=== PATIENT | female | born 1940 | race Caucasian/White ===

== ENCOUNTER → 2017-09-01 17:28 | Outpatient (CLI) | payer MEDICARE, OTHER, SELFPAY ==
--- NOTE | 2017-09-01 17:31 | DI.MRI.S_ITS ---
PROCEDURE: MR LUMBAR SPINE WO CON INDICATIONS: L5/S1 spondylolithesis, Spinal Stenosis. Low back pain TECHNIQUE: Noncontrast sagittal T1 spin echo and T2 fast echo, sagittal STIR, axial T1 and T2 fast spin echo through the lumbar spine. In cases with scoliosis, additional coronal T2 fast spin echo may be performed. COMPARISON: [facility], CR, SPINE LUMB 2 OR 3VW, 04/16/2015, 14:01. [facility], CR, SPINE LUMB MIN 4VW, 09/26/2013, 14:20. [facility], MR, L-SPINE WITHOUT CONTRAST, 10/04/2013, 13:00. FINDINGS: Image quality: Excellent. Alignment and Curvature: Suspect transitional anatomy with prominent S1-S2 disc. There is grade 1 anterolisthesis at L5-S1. Bone Marrow: Marrow is of normal overall signal. No acute vertebral body compression fractures. Spinal Cord: Conus medullaris terminates at the L2 level. Visualized cord demonstrates normal signal and size. Paraspinous Soft Tissues: No paravertebral masses. L1-L2: Normal appearance. L2-L3: Normal appearance. L3-L4: Normal appearance. L4-L5: Mild loss of disc height and disc desiccation. There is prompt posterior disc bulge. Mild to moderate bilateral facet arthropathy and hypertrophy of ligament flavum. No central canal stenosis. Mild bilateral foraminal stenosis, unchanged. L5-S1: Mild to moderate loss of disc height and disc desiccation. There is prompt posterior disc bulge. Moderate to severe bilateral facet. No central canal stenosis. Mild bilateral foramina stenosis, unchanged. There is a large collar of cyst in the sacrum at level of S2-S3 measuring 1.7 x 2.5 cm, unchanged from the last exam. IMPRESSION: 1. Multilevel degenerative disc disease and facet arthropathy as described. 2. No central canal stenosis. 3. Mild bilateral foraminal stenosis at L4-L5 and L5-S1. 4. Suspect transitional anatomy. Please confirm vertebral levels on radiographs prior to interventional/surgical procedures. 5. 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 Dictated by: Americo Mcfarlane M.D. on 09/02/2017 at 14:02 Approved by: Americo Mcfarlane M.D. on 09/03/2017 at 10:33
== END ==
PROVIDERS: PCP Family Medicine; Visit Provider Physical Medicine & Rehabilitation
DX: M47.816 Spondylosis without myelopathy or radiculopathy, lumbar region (principal); M51.36 Other intervertebral disc degeneration, lumbar region; M99.73 Connective tissue and disc stenosis of intervertebral foramina of lumbar region
CPT/HCPCS: 72148

== ENCOUNTER 2017-09-22 13:52 | Outpatient (CLI) | payer MEDICARE, OTHER, SELFPAY ==
--- NOTE | 2017-09-22 13:56 | DI.RAD.S_ITS ---
PROCEDURE: PAIN L/SI FACET INJ/BLK 1STL INDICATIONS: SPONDYLOSIS FINDINGS: Fluoroscopic spot filming was performed to verify placement of spinal needles at the left L4-5 and left L5-S1 facet level(s), as labeled on the films. Appropriate location(s) of the needle tip(s) was confirmed by injection of iodinated contrast. IMPRESSION: Successful left L4-5 and left L5-S1 facet localization. Dictated by: Syed Leslie M.D. on 09/22/2017 at 16:28 Approved by: Syed Leslie M.D. on 09/22/2017 at 16:33
--- NOTE | 2017-09-22 13:56 | DI.RAD.S_ITS ---
PROCEDURE: XR SHOULDER LT MIN 2V INDICATIONS: shoulder impingement TECHNIQUE: 3 views of the shoulder were acquired. COMPARISON: None. FINDINGS: Bones: No fractures or dislocations. No suspicious bony lesions. Visualized ribs appear intact. 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 Soft tissues: No suspicious soft tissue calcifications. 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 No definite osseous impingement on to the normal course of the rotator cuff. Dictated by: Syed Leslie M.D. on 09/22/2017 at 14:55 Approved by: Syed Leslie M.D. on 09/22/2017 at 14:55
--- NOTE | 2017-09-22 13:56 | DI.RAD.S_ITS ---
PROCEDURE: XR LUMBAR SPINE 6V W BENDING INDICATIONS: L5/S1 slip with stenosis TECHNIQUE: 5 views of the lumbar spine acquired. COMPARISON: [facility], MR, L-SPINE WITHOUT CONTRAST, 10/04/2013, 13:00. [facility], MR, MR LUMBAR SPINE WO CON, 09/01/2017, 17:54. FINDINGS: Bones: 5 nonrib-bearing vertebrae are present. There is abnormal bony alignment with mild anterolisthesis of L4 on L5 and slight anterolisthesis of L5 on S1. No vertebral body compression fractures. No suspicious bony lesions. Soft tissues: Overlying bowel gas pattern is normal. No suspicious soft tissue calcifications. Flexion/extension: There is normal range of motion, with preserved normal alignment. IMPRESSION: Mild grade 1 anterolisthesis of L4 on L5 and of L5 on S1, associated with degenerative disc disease and facet osteoarthritis. Pars interarticularis defects are not identified. Dictated by: Syed Leslie M.D. on 09/22/2017 at 14:56 Approved by: Syed Leslie M.D. on 09/22/2017 at 15:08
[2017-09-22 15:19] VITALS: BP 152/78; PULSE 56; RESP 14; TEMP 36.4; O2SAT 96
[2017-09-22 15:54] VITALS: BP 163/76; PULSE 64; RESP 16; O2SAT 98
[2017-09-22 15:58] VITALS: BP 163/76; PULSE 63; RESP 12; O2SAT 97
--- NOTE | 2017-09-22 16:03 | P.PCN_ITS ---
Procedures Date/Time Date of procedure: 09/22/17 Time of procedure: 14:52 General Procedure description: PREOP DIAGNOSIS 1. FACET ARTHROPATHY, 2. AXIAL LBP, 3. MULTILEVEL DDD, POST OP DIAGNOSIS 1. FACET ARTHROPATHY, 2. AXIAL LBP, 3. MULTILEVEL DDD, PROCEDURES 1. FLUORSCOPICALLY GUIDED CONTRAST CONTROLLED FACET JOINT INJECTIONS LEFT L4/5 , L5/S1 SURGEON: DO RASHMI Henry is referred by Dr. Gambino for treatment of Axial LBP FINDINGS Multilevel Facet Arthropathy with Clinically significant axial LBP DESCRIPTION OF PROCEDURE Fluoroscopically guided, contrast-controlled left L4/5, L5/S1 facet joint injections. Following denial of allergy and review of potential side effects and complications, including, but not necessarily limited to, infection, allergic reaction, local tissue breakdown, stroke, temporary or permanent nerve injury, paralysis, and possible , the patient indicated that the patient understood and agreed to proceed. An informed consent document was signed by the patient, witnessed by a nurse, and placed in the patient's chart. Additionally, other treatment options including medications, modalities, and physical therapy were reviewed with the patient. In the prone position, following sterile prep and drape of the lumbar region, the posterior aspect of the left L4/5, L5/S1 facet joints were identified fluoroscopically. The skin was anesthetized via a 25-gauge 1.5-inch needle with 1% lidocaine solution into the corresponding facet joints. At this point, a 22-gauge 3.5-inch spinal needle was atraumatically introduced and advanced under fluoroscopic guidance into the corresponding facet joints. Following negative aspiration, injections of approximately 0.2-cc of Isovue 200 confirmed interarticular placement without vascular uptake. Radiological data, including multiple fluoroscopic views of the lumbosacral spine, reveal a spinal needle at the left L4/5, L5/S1 facet joints. Subsequent views show flow of contrast material both superiorly and inferiorly within the joint space without vascular or intrathecal uptake. At this point, a total of 0.5 cc including a mixture of 0.25cc Marcaine and 0.25cc betamethasone was injected without complication into each of the corresponding facet joints. The patient was then transferred to the recovery area where they were observed for an appropriate period of time after the injection. The patient reported a VAS score of 7 prior to the procedure and a post-procedure VAS of 0. Total Fluoroscopy Time: 12.7 seconds Total Conscious Sedation Time: 24min POST OP INSTRUCTIONS The patient was provided a Pain Log to continue to record their response to the target-specific procedure prior to follow-up visit with their referring physician. Additionally, specific post-injection care instructions and a contact number to our office were provided if concerns arise regarding possible complications associated with the procedure are suspected. Carlos Uriostegui, Complications: none
[2017-09-22 16:08] VITALS: BP 175/76; PULSE 78; RESP 16; O2SAT 100
[2017-09-22] MEDS: IOPAMIDOL 15 ML VIAL 3 ML INJ (16:15)
[2017-09-22] MEDS: BETAMETHASONE 30 MG/5 ML MDV 6 MG INJ (16:15)
[2017-09-22] MEDS: BUPIVACAINE 0.5% (PF) 30 ML VIAL INJ (16:15)
== END 2017-09-22 17:17 | disposition home or self-care (01) ==
PROVIDERS: PCP Family Medicine; Visit Provider Physical Medicine & Rehabilitation
DX: M47.26 Other spondylosis with radiculopathy, lumbar region (principal); M43.17 Spondylolisthesis, lumbosacral region; M75.40 Impingement syndrome of unspecified shoulder; M19.012 Primary osteoarthritis, left shoulder
CPT/HCPCS: 64493; 72114; 73030; 99152; J0702

== ENCOUNTER 2017-11-04 09:58 | Outpatient (CLI) | payer MEDICARE, OTHER, SELFPAY ==
[2017-11-04] VITALS (8 sets, daily range): BP systolic 98–163; BP diastolic 39–91; PULSE 60–69; RESP 15–16; TEMP 36.5; O2SAT 96–100
--- NOTE | 2017-11-04 | DI.RAD.S_ITS ---
PROCEDURE: XR KNEE RT 3V INDICATIONS: knee djd TECHNIQUE: 3 views of the knee were acquired. COMPARISON: None. FINDINGS: Bones: No fractures or dislocations. No suspicious bony lesions. Mild joint space narrowing and minimal marginal spurring all 3 compartments. Soft tissues: Small joint effusion. No suspicious soft tissue calcifications. IMPRESSION: 1. Small joint effusion. No acute osseous abnormality. 2. Mild tricompartmental joint degeneration Dictated by: Barry Ron M.D. on 11/04/2017 at 16:27 Approved by: Barry Ron M.D. on 11/04/2017 at 16:29
--- NOTE | 2017-11-04 10:05 | DI.RAD.S_ITS ---
PROCEDURE: PAIN L INTERLAMINAR/CAUDAL INJ INDICATIONS: L5 - S1 EPIDURAL FINDINGS: Fluoroscopic spot filming was performed to verify placement of spinal needles at the L5-S1 level(s), as labeled on the films. Appropriate location(s) of the needle tip(s) was confirmed by injection of iodinated contrast. IMPRESSION: Intraoperative imaging for injection at the L5-S1 level Dictated by: Barry Ron M.D. on 11/04/2017 at 16:49 Approved by: Barry Ron M.D. on 11/04/2017 at 16:49
[2017-11-04] MEDS: MIDAZOLAM 5 MG/5 ML VIAL IV (13:41)
[2017-11-04] MEDS: DEXAMETHASONE 10 MG/ML VIAL 20 MG INJ (13:48)
[2017-11-04] MEDS: IOPAMIDOL 15 ML VIAL 3 ML INJ (13:48)
[2017-11-04] MEDS: BUPIVACAINE 0.25% (PF) VIAL 2 ML INJ (13:48)
[2017-11-04] MEDS: methylPREDNISolone acetate 80 MG/ML VIAL INJ (13:48)
--- NOTE | 2017-11-04 14:05 | P.PCN_ITS ---
Procedures Date/Time Date of procedure: 11/04/17 Time of procedure: 14:02 General Procedure description: PROVIDER: Carlos Uriostegui DO Operative Note PREOP DIAGNOSIS 1. HNP WITH RADICULAR FEATURES, 2. MULTILEVEL CENTRAL STENOSIS, POST OP DIAGNOSIS 1. HNP WITH RADICULAR FEATURES, 2. MULTILEVEL CENTRAL STENOSIS, PROCEDURES 1. FLUORSCOPICALLY GUIDED CONTRAST CONTROLLED INTERLAMINAR EPIDURAL STEROID INJECTION - L5/S1 PHYSICIAN: Carlos Uriostegui DO INDICATIONS Kenia is referred by Dr. Gambino for treatment of Bilateral Foraminal Stenosis L >R LE symptoms. FINDINGS Multilevel Central Spinal Stenosis with Nerve Root Compression DESCRIPTION OF PROCEDURE Fluoroscopically guided, contrast-controlled L5/S1 translaminar epidural steroid injection. Following denial of allergy and review of potential side effects and complications, including, but not necessarily limited to, infection, allergic reaction, local tissue breakdown, temporary as well as permanent nerve injury, paralysis, stroke and possible , the patient indicated that the patient understood and agreed to proceed. An informed consent document was signed by the patient, witnessed by a nurse, and placed in the patient's chart. Additionally, other treatment options including modalities, medications, and physical therapy were reviewed with the patient. After review of previous anaesthesic history and IV conscious sedation the patient was deemed safe to proceed with todays procedure with IV conscious sedation as ASA class II designation. Safety time-out was performed to confirm patient ID, procedure to be performed and site of procedure. IV sedation was accomplished with a combination of 3mg of Versed administered by the RN after DO order, titrated to patient comfort during the course of the procedure while the patient remained responsive to all verbal commands. In the prone position, following sterile prep and drape of the lumbar region, the L5/S1 translaminar space was identified fluoroscopically. The skin was anesthetized via a 25-gauge, 1.5-inch needle with 1% lidocaine solution. At this point, a 22-gauge short bevel spinal needle was atraumatically introduced and advanced under fluoroscopic guidance into the region of the L5/S1 translaminar space. Depth was confirmed on lateral view. Radiological data, including multiple fluoroscopic views of the lumbar spine, reveal a spinal needle at the L5/S1 translaminar space. Lateral views then show placement of the needle in the epidural space. Subsequent views show contrast material flowing superiorly and inferiorly in the epidural space. No vascular or intrathecal uptake is observed. At this point, using loss of resistance technique with saline and air, the epidural space was entered. This was confirmed following negative aspiration with injection of approximately 1.5 cc of Isovue 200, showing excellent epidural flow without vascular or intrathecal uptake. At this point, 1 cc of 1 % lidocaine solution combined with 3 cc or 20 mg of dexamethasone and 80mg Depo medrol was injected without incident. The patent tolerated the procedure without signs of symptoms of complications prior to transfer to the recovery area for further monitoring. The patient was then transferred to the recovery area where they were observed for an appropriate period of time after the injection. The patient reported a VAS score of 6 prior to the procedure and a post-procedure VAS of 0. Total Fluoroscopy Time: 11.8 seconds Total Conscious Sedation Time: 24min POST OP INSTRUCTIONS The patient was provided a Pain Log to continue to record their response to the target-specific procedure prior to follow-up visit with their referring physician. Additionally, specific post-injection care instructions and a contact number to our office were provided if concerns arise regarding possible complications associated with the procedure are suspected. Carlos Uriostegui DO
== END 2017-11-04 15:15 | disposition home or self-care (01) ==
PROVIDERS: PCP Family Medicine; Visit Provider Physical Medicine & Rehabilitation
DX: M51.16 Intervertebral disc disorders with radiculopathy, lumbar region (principal); M48.061 Spinal stenosis, lumbar region without neurogenic claudication; M17.11 Unilateral primary osteoarthritis, right knee; M25.461 Effusion, right knee
CPT/HCPCS: 62323; 73562; J1040; J1100; J2250

== ENCOUNTER 2018-02-24 08:35 | Outpatient (CLI) | payer MEDICARE, OTHER, SELFPAY ==
--- NOTE | 2018-02-24 08:37 | DI.RAD.S_ITS ---
PROCEDURE: PAIN L INTERLAMINAR/CAUDAL INJ INDICATIONS: SPINAL STENOSIS FINDINGS: Fluoroscopic spot filming was performed to verify placement of spinal needles at the L5-S1 level(s), as labeled on the films. Appropriate location(s) of the needle tip(s) was confirmed by injection of iodinated contrast. Dictated by: Khanh Nur M.D. on 02/24/2018 at 14:56 Approved by: Khanh Nur M.D. on 02/24/2018 at 14:57
[2018-02-24 08:43] VITALS: BP 170/81; PULSE 65; RESP 16; TEMP 36.1; O2SAT 98
[2018-02-24 09:19] VITALS: BP 173/93; PULSE 73; RESP 16; O2SAT 96
[2018-02-24] MEDS: MIDAZOLAM 5 MG/5 ML VIAL IV (09:20)
[2018-02-24 09:23] VITALS: BP 154/90; PULSE 73; RESP 16; O2SAT 95
[2018-02-24] MEDS: DEXAMETHASONE 10 MG/ML VIAL 20 MG INJ (09:24)
[2018-02-24] MEDS: BUPIVACAINE 0.25% (PF) VIAL 2 ML INJ (09:24)
[2018-02-24] MEDS: methylPREDNISolone acetate 80 MG/ML VIAL INJ (09:24)
[2018-02-24] MEDS: IOPAMIDOL 15 ML VIAL 3 ML INJ (09:24)
[2018-02-24 09:26] VITALS: BP 146/85; PULSE 66; RESP 18; O2SAT 95
--- NOTE | 2018-02-24 09:31 | PC.NURSE ---
assisting pt off proc table and transporting to post proc area in stable condition
--- NOTE | 2018-02-24 09:33 | P.PCN_ITS ---
Procedures Date/Time Date of procedure: 02/24/18 Time of procedure: 09:31 General Procedure description: PROVIDER: Carlos Uriostegui DO Operative Note PREOP DIAGNOSIS 1. HNP WITH RADICULAR FEATURES, 2. MULTILEVEL CENTRAL STENOSIS, POST OP DIAGNOSIS 1. HNP WITH RADICULAR FEATURES, 2. MULTILEVEL CENTRAL STENOSIS, PROCEDURES 1. FLUORSCOPICALLY GUIDED CONTRAST CONTROLLED INTERLAMINAR EPIDURAL STEROID INJECTION - Para Left L5/S1 PHYSICIAN: Carlos Uriostegui DO INDICATIONS Kenia is referred by Dr. Gambino for treatment of Bilateral Foraminal Stenosis L >R LE symptoms. FINDINGS Multilevel Central Spinal Stenosis with Nerve Root Compression DESCRIPTION OF PROCEDURE Fluoroscopically guided, contrast-controlled L5/S1 translaminar epidural steroid injection. Following denial of allergy and review of potential side effects and complications, including, but not necessarily limited to, infection, allergic reaction, local tissue breakdown, temporary as well as permanent nerve injury, paralysis, stroke and possible , the patient indicated that the patient understood and agreed to proceed. An informed consent document was signed by the patient, witnessed by a nurse, and placed in the patient's chart. Additionally, other treatment options including modalities, medications, and physical therapy were reviewed with the patient. After review of previous anaesthesic history and IV conscious sedation the patient was deemed safe to proceed with todays procedure with IV conscious sedation as ASA class II designation. Safety time-out was performed to confirm patient ID, procedure to be performed and site of procedure. IV sedation was accomplished with a combination of 3mg of Versed administered by the RN after DO order, titrated to patient comfort during the course of the procedure while the patient remained responsive to all verbal commands. In the prone position, following sterile prep and drape of the lumbar region, the L5/S1 translaminar space was identified fluoroscopically. The skin was anesthetized via a 25-gauge, 1.5-inch needle with 1% lidocaine solution. At this point, a 22-gauge short bevel spinal needle was atraumatically introduced and advanced under fluoroscopic guidance into the region of the L5/S1 translaminar space. Depth was confirmed on lateral view. Radiological data, including multiple fluoroscopic views of the lumbar spine, reveal a spinal needle at the L5/S1 translaminar space. Lateral views then show placement of the needle in the epidural space. Subsequent views show contrast material flowing superiorly and inferiorly in the epidural space. No vascular or intrathecal uptake is observed. At this point, using loss of resistance technique with saline and air, the epidural space was entered. This was confirmed following negative aspiration with injection of approximately 1.5 cc of Isovue 200, showing excellent epidural flow without vascular or intrathecal uptake. At this point, 1 cc of 1 % lidocaine solution combined with 3 cc or 20 mg of dexamethasone and 80mg Depo medrol was injected without incident. The patent tolerated the procedure without signs of symptoms of complications prior to transfer to the recovery area for further monitoring. The patient was then transferred to the recovery area where they were observed for an appropriate period of time after the injection. The patient reported a VAS score of 6 prior to the procedure and a post-procedure VAS of 0. Total Fluoroscopy Time: 11.8 seconds Total Conscious Sedation Time: 24min POST OP INSTRUCTIONS The patient was provided a Pain Log to continue to record their response to the target-specific procedure prior to follow-up visit with their referring physician. Additionally, specific post-injection care instructions and a contact number to our office were provided if concerns arise regarding possible complications associated with the procedure are suspected. Carlos Uriostegui DO Complications: none
[2018-02-24 09:40] VITALS: BP 144/64; PULSE 68; RESP 18; O2SAT 98
[2018-02-24 09:49] VITALS: BP 139/69; PULSE 61; RESP 18; O2SAT 98
== END 2018-02-24 09:59 | disposition home or self-care (01) ==
LOC: RAD 08:37
PROVIDERS: PCP Family Medicine; Visit Provider Physical Medicine & Rehabilitation
DX: M51.17 Intervertebral disc disorders with radiculopathy, lumbosacral region (principal); M48.062 Spinal stenosis, lumbar region with neurogenic claudication; M48.07 Spinal stenosis, lumbosacral region; M43.17 Spondylolisthesis, lumbosacral region
CPT/HCPCS: 62323; 99152; J1040; J1100; J2250

== ENCOUNTER 2018-06-01 11:32 | Outpatient (CLI) | payer MEDICARE, OTHER, SELFPAY ==
[2018-06-01] VITALS (13 sets, daily range): BP systolic 116–152; BP diastolic 62–89; PULSE 55–65; RESP 16–18; TEMP 36.2; O2SAT 96–100
--- NOTE | 2018-06-01 11:34 | DI.RAD.S_ITS ---
PROCEDURE: PAIN L/S MED/LAT N RFA BILAT INDICATIONS: SPONDYLOSIS FINDINGS: Fluoroscopic spot filming was performed to verify placement of spinal needles at the L4, L5, S1 level(s), as labeled on the films. Appropriate location(s) of the needle tip(s) was confirmed by injection of iodinated contrast. Dictated by: Khanh Nur M.D. on 06/01/2018 at 15:19 Approved by: Khanh Nur M.D. on 06/01/2018 at 15:19
[2018-06-01] MEDS: MIDAZOLAM 5 MG/5 ML VIAL IV (13:20)
[2018-06-01] MEDS: fentaNYL 100 MCG/2 ML INJ 50 MCG IV (13:30)
[2018-06-01] MEDS: LIDOCAINE 1% 20 ML INJ 10 ML INJ (13:54)
[2018-06-01] MEDS: BETAMETHASONE 30 MG/5 ML MDV 12 MG INJ (13:55)
[2018-06-01] MEDS: BUPIVACAINE 0.5% (PF) VIAL 5 ML INJ (13:57)
--- NOTE | 2018-06-01 14:15 | PC.NURSE ---
pt tolerated procedure, able to get off table with 2 person assist, able to stand with support on each side. Transferred via wheelchair to pre procedure room for continued monitoring with Viviana ISAAC.
--- NOTE | 2018-06-01 14:20 | P.PCN_ITS ---
Procedures Date/Time Date of procedure: 06/01/18 Time of procedure: 14:19 General Procedure description: PREOP DIAGNOSIS 1. RECALCITRANT FACET ARTHROPATHY, POST OP DIAGNOSIS 1. RECALCITRANT FACET ARTHROPATHY PROCEDURES 1. BILATERAL L4 AND L5 MEDIAL BRANCH RADIOFREQUENCY NEUROTOMY AND S1 DORSAL RAMUS BRANCH RADIOFREQUENCY NEUROTOMY, PHYSICIAN: Carlos Uriostegui DO INDICATIONS: Kenia is referred by Dr. Gambino for treatment of facet arthropathy. DESCRIPTION OF PROCEDURE Bilateral L4 and L5 medial branch radiofrequency neurotomy and S1 dorsal ramus radiofrequency neurotomy under fluoroscopy with conscious sedation. The patient is well known to this clinic having undergone previous facet injections with good but temporary relief. The patient has experienced appropriate, concordant relief with previous facet and median branch blocks but the patient's pain has been recalcitrant to further conservative measures. Therefore, based upon the patient's relief and persistent symptoms, the patient is considered an appropriate candidate for facet rhizotomy. All of the patient's questions regarding the risks versus benefits of the procedure, including, but not limited to, bleeding, infection, temporary as well as lasting nerve injury, paralysis, stroke, and , as well treatment alternatives were answered to satisfaction. After obtaining informed consent, denial of pertinent drug allergies, as well as being made aware of the potential risks of bleeding, infection, spinal cord trauma, paralysis, temporary and permanent nerve damage, seizure, stroke, and possible , the patient was brought to the fluoroscopy suite and positioned prone on the fluoroscopy table. The lumbar region was prepped with Betadine and covered with a fenestrated drape in the usual sterile fashion. Appropriate monitors applied including pulse oximeter, pulse, and blood pressure for regular monitoring throughout the procedure. After review of previous anaesthesic history and IV conscious sedation the patient was deemed safe to proceed with todays procedure with IV conscious sedation as ASA class II designation. Safety time-out was performed to confirm patient ID, procedure to be performed and site of procedure. IV sedation was accomplished with a combination of 5mg of Versed and 50mcg of Fentanyl administered by the RN after DO order, titrated to patient comfort during the course of the procedure while the patient remained responsive to all verbal commands. After local infiltration using 1% lidocaine, under fluoroscopic guidance, a 10- cm RF insulated needle with a 10-mm active tip was positioned parallel to the junction of the right sacral ala and the superior articulating process where the S1 dorsal ramus resides. Needle placement was confirmed with sensory stimulation at 50 Hz, with motor stimulation of .5v on the right which produced local stimulation without radicular component. The stimulation was then increased to 1.5v with, once again, only local multifidus stimulation without radicular component. This was then followed by two discreet lesions performed at 80 degrees Celsius for 90 seconds each. The needle was then removed and the identical procedure was performed along the length of the right L5 medial branch with motor stimulation at .7v on the right. The identical procedure was once again performed along the length of the right L4 medial branch with motor stimulation of .5v on the right. The identical procedure was repeated on the left. The patient tolerated the procedure well without signs or symptoms of complications prior to transfer to the recovery area continued monitoring without incident. The patient was then transferred to the recovery area where they were observed for an appropriate period of time after the injection. The patient reported a VAS score of 9 prior to the procedure and a post-procedure VAS of 0. Total Fluoroscopy Time: 22.7 seconds Total Conscious Sedation Time: 34min POST OP INSTRUCTIONS The patient was provided a Pain Log to continue to record the patient's response to the target-specific procedure prior to the patient's follow-up visit with the referring physician. Additionally, specific post-injection care instructions and a contact number to our office were provided if concerns arise regarding possible complications associated with the procedure are suspected. Carlos Uriostegui DO Complications: none
--- NOTE | 2018-06-02 16:12 | PC.NURSE ---
FOLLOW UP CALL MADE, PT C/O INCREASED LOWER BACK PAIN, REMINDED HER THAT THAT IS VERY COMMON ON THE DAY AFTER A PROCEDURE AND ENCOURAGED HER TO CONTINUE HER PAIN LOG AND CALL CLINIC # IF IT DOES NOT START TO TREND BETTER IN THE NEXT 10 DAYS. PT VERBALIZED UNDERSTANDING OF INSTRUCTIONS AND DENIED OTHER QUESTIONS/CONCERNS.
== END 2018-06-01 14:37 | disposition home or self-care (01) ==
LOC: RAD 11:33
PROVIDERS: PCP Family Medicine; Visit Provider Physical Medicine & Rehabilitation
DX: M47.817 Spondylosis without myelopathy or radiculopathy, lumbosacral region (principal); M43.17 Spondylolisthesis, lumbosacral region
CPT/HCPCS: 64635; 64636; 99152; 99153; J0702; J2250; J3010

== ENCOUNTER 2018-07-27 13:49 | Outpatient (CLI) | payer MEDICARE, OTHER, SELFPAY ==
[2018-07-27] VITALS (8 sets, daily range): BP systolic 120–168; BP diastolic 49–93; PULSE 49–62; RESP 16–18; TEMP 35.9; O2SAT 95–100
--- NOTE | 2018-07-27 13:53 | DI.RAD.S_ITS ---
PROCEDURE: PAIN SI JOINT INJECTION ELLA COMPARISON: None. INDICATIONS: SPONDYLOSIS FINDINGS: Right and left sacroiliac joint injection from posterior approach is noted, with needle tips in normal position for lower third sacroiliac joint access. IMPRESSION: Successful dorsal approach to each sacroiliac joint at the inferior third for sacroiliac joint steroid injection bilaterally. Dictated by: Syed Leslie M.D. on 07/27/2018 at 15:41 Approved by: Syed Leslie M.D. on 07/27/2018 at 15:42
[2018-07-27] MEDS: fentaNYL 100 MCG/2 ML INJ 50 MCG IV (14:35)
[2018-07-27] MEDS: MIDAZOLAM 5 MG/5 ML VIAL IV (14:35)
[2018-07-27] MEDS: BETAMETHASONE 30 MG/5 ML MDV 12 MG INJ (14:37)
[2018-07-27] MEDS: BUPIVACAINE 0.5% (PF) VIAL 2 ML INJ (14:38)
[2018-07-27] MEDS: IOPAMIDOL 15 ML VIAL 3 ML INJ (14:40)
--- NOTE | 2018-07-27 14:47 | PC.NURSE ---
pt tolerated procedure well. Able to get patient off the table with standby assist. Transferred pt via wheelchair to pre procedure room for continued monitoring with Viviana ISAAC.
--- NOTE | 2018-07-27 14:57 | P.PCN_ITS ---
Procedures Date/Time Date of procedure: 07/27/18 Time of procedure: 14:55 General Procedure description: PREOP Dx: Sacroiliac joint pain/DJD POST OP DX: Sacroiliac Joint Pain/DJD Procedures: Fluoroscopic guided contrast controlled bilateral sacroiliac joint injections Physician: Carlos Uriostegui D.O. Indications: Kenia is referred by Dr. Gambino for treatment of left sacroiliac joint DJD Description of procedure Fluoroscopic guided, contrast controlled left sacroiliac joint injection Following denial of allergies and review of potential side effects and complications, including, but not necessarily limited to, infection, allergic reaction, local tissue breakdown, temporary as well as permanent nerve injury, paralysis, stroke and possible , the patient indicated that they understood and agreed to proceed. An informed consent was signed by the patient, witnessed by a nurse, and placed in the patient's chart. Additionally, other treatment options including modalities, medications, and physical therapy were reviewed w ith the patient. After review of previous anaesthesic history and IV conscious sedation the patient was deemed safe to proceed with todays procedure with IV conscious sedation as ASA class II designation. Safety time-out was performed to confirm patient ID, procedure to be performed and site of procedure. IV sedation was accomplished with a combination of 3mg of Versed and 50mcg of Fentanyl admin istered by the RN after DO order, titrated to patient comfort during the course of the procedure while the patient remained responsive to all verbal commands. In the prone position following sterile prep and drape of the pelvic region, the hyper lucency on in the inferior aspect of the left sacroiliac joint was identified fluoroscopically the skin was anesthetized be a 25 gauge 1 eventual with approximately 2 cc of 1% lidocaine solution. At this point, a 22 gauge 3 in spinal needle was atraumatically introduced and advanced under fluoroscopic guidance into the inferior aspect of the left sacroiliac joint. Following negative aspiration, approximately 0.3 cc of Isovue-300 was injected confirming intra-articular placement without vascular uptake. Radiographic data, including multiple fluoroscopic views of the pelvis, reveals a spinal needle in the left sacroiliac joint hyper lucent zone. Subsequent view show flow contrast tear superiorly and inferiorly within the joint capsule without vascular intrathecal uptake. At this point a total of 1 cc or 0 8 of 0.5% Marcaine was combined with 1 cc of 6 mg of betamethasone was injected without incident. The patient tolerated the procedure well without signs or symptoms of complications prior to transfer to the recovery area for further monitoring. The patient was then transferred to the recovery area with a bur observed for an appropriate time after the injection. The patient reverted a vas score of 7 prior to the procedure and postprocedure vas of 1. Total fluoroscopy time: 22.7 sec Total conscious sedation time: 24 min Postop instructions The patient was provided with a pain like to continue to record the patient's response to the target specific procedure prior to the patient's follow-up visit with the referring physician. Additionally, specific post injection care instructions and a contact number to our office were provided if concerns arise regarding the possible complications associated with procedure are suspected. Carlos Uriostegui D.O. Complications: none
--- NOTE | 2018-07-28 12:11 | PC.NURSE ---
Follow up Call made and pt reports I am wonderful!! No pain and no meds. She asked what her blood pressures were in the procedure so I looked those up for her. She is going to see DR. Guerra her primary care doctor this week. Otherwise she is very happy with the results.
== END 2018-07-27 15:28 | disposition home or self-care (01) ==
LOC: RAD 13:51
PROVIDERS: PCP Family Medicine; Visit Provider Physical Medicine & Rehabilitation
DX: M53.3 Sacrococcygeal disorders, not elsewhere classified (principal); G89.29 Other chronic pain; M47.819 Spondylosis without myelopathy or radiculopathy, site unspecified
CPT/HCPCS: 27096; 99152; J0702; J2250; J3010

== ENCOUNTER → 2020-04-21 13:04 | Outpatient (CLI) | payer MEDICARE, OTHER, SELFPAY ==
--- NOTE | 2020-04-21 13:06 | DI.RAD.S_ITS ---
PROCEDURE: XR LUMBAR SPINE MIN 4V INDICATIONS: acute lbp TECHNIQUE: 5 views of the lumbar spine were acquired. COMPARISON: [facility], MR, MR LUMBAR SPINE WO CON, 04/21/2020, 13:21. [facility], CR, XR LUMBAR SPINE 6V W BENDING, 09/22/2017, 13:38. FINDINGS: Bones: 5 nonrib-bearing vertebrae are present. Exaggerated lumbar spine lordosis. Mild anterolisthesis of L5 on S1. L4-L5 and L5-S1 facet joint hypertrophy. No vertebral body compression fractures. No suspicious bony lesions. Subtle lucency in the S2 vertebral body, unchanged. Soft tissues: Overlying bowel gas pattern is normal. No suspicious soft tissue calcifications. Oblique images: No pars defects. IMPRESSION: No compression fracture. Mild anterolisthesis of L5 on S1. Mild degenerative change. Dictated by: Theo Cam M.D. on 04/21/2020 at 15:39 Approved by: Theo Cam M.D. on 04/21/2020 at 15:45
--- NOTE | 2020-04-21 13:06 | DI.MRI.S_ITS ---
PROCEDURE: MR LUMBAR SPINE WO CON INDICATIONS: acute LBP with spasms TECHNIQUE: Noncontrast sagittal T1 spin echo and T2 fast echo, sagittal STIR, axial T1 and T2 fast spin echo through the lumbar spine. In cases with scoliosis, additional coronal T2 fast spin echo may be performed. COMPARISON: [facility], CR, XR LUMBAR SPINE MIN 4V, 04/21/2020, 13:40. [facility], MR, L-SPINE WITHOUT CONTRAST, 10/04/2013, 13:00. [facility], CR, XR LUMBAR SPINE 6V W BENDING, 09/22/2017, 13:38. [facility], MR, MR LUMBAR SPINE WO CON, 09/01/2017, 17:54. FINDINGS: Image quality: Excellent. Alignment and Curvature: There is grade 1 anterolisthesis of L5 on S1, trace anterolisthesis of L4 on L5 and trace retrolisthesis of L1 on L2, L2 on L3, unchanged. Transitional anatomy is noted. Vertebral bodies are labeled 1 through 5 in keeping with prior nomenclature. Bone Marrow: Marrow is of normal overall signal. No acute vertebral body compression fractures. Spinal Cord: Conus medullaris terminates at the L2 level. Visualized cord demonstrates normal signal and size. 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 Paraspinous Soft Tissues: No paravertebral masses. Discs: Moderate to severe desiccation is present L5-S1, moderate throughout the remainder of the lumbar spine. L1-L2: No disc bulge, spinal stenosis or foraminal narrowing. Mild facet hypertrophy. No interval change. L2-L3: No disc bulge, spinal stenosis or foraminal narrowing. Mild ligamentum flavum and facet hypertrophy as well as epidural lipomatosis. No interval progression. L3-L4: Minimal disc bulge without spinal stenosis. Minimal right foraminal narrowing with facet and ligamentum flavum hypertrophy. Epidural lipomatosis is present. Minimal interval progression. L4-L5: Mild disc bulge without spinal stenosis. Minimal to mild bilateral foraminal narrowing. Facet and ligamentum flavum hypertrophy are present. L5-S1: Mild disc bulge without spinal stenosis. Moderate to severe left and minimal right foraminal narrowing, mildly progressive on the left. Facet hypertrophy is present. IMPRESSION: 1. Multilevel degenerative changes with small areas of interval progression as above. 2. Most prominent foraminal narrowing is noted on the left at L5-S1 secondary to anterolisthesis as well as facet hypertrophy. Dictated by: Cuca Potts M.D. on 04/23/2020 at 10:33 Approved by: Cuca Potts M.D. on 04/23/2020 at 10:41
== END ==
PROVIDERS: PCP Family Medicine; Referring Provider Physical Medicine & Rehabilitation; Visit Provider Physical Medicine & Rehabilitation
DX: M54.5 Low back pain (principal); M43.17 Spondylolisthesis, lumbosacral region; M47.817 Spondylosis without myelopathy or radiculopathy, lumbosacral region; M47.816 Spondylosis without myelopathy or radiculopathy, lumbar region; M48.07 Spinal stenosis, lumbosacral region
CPT/HCPCS: 72110; 72148

== ENCOUNTER 2020-06-21 11:16 | Outpatient (CLI) | payer MEDICARE, OTHER, SELFPAY ==
[2020-06-21] VITALS (8 sets, daily range): BP systolic 130–174; BP diastolic 59–74; PULSE 52–56; RESP 12–17; TEMP 36.8; O2SAT 94–98
--- NOTE | 2020-06-21 11:19 | DI.RAD.S_ITS ---
PROCEDURE: PAIN L/SI FACET INJ/BLK 1STL INDICATIONS: SPONDYLOSIS COMPARISON: [facility], , PAIN L/SI FACET INJ/BLK 1STL, 09/22/2017, 15:48. FINDINGS: Fluoroscopic spot filming was performed to verify placement of spinal needles at the left L4-5 and L5-S1 level(s), as labeled on the films. Appropriate location(s) of the needle tip(s) was confirmed by injection of iodinated contrast. IMPRESSION: Fluoroscopic guidance for left L4-5 and L5-S1 facet joint injection. Please see procedure note for further details. Dictated by: Shayan Barnes M.D. on 06/21/2020 at 14:52 Approved by: Shayan Barnes M.D. on 06/21/2020 at 14:53
[2020-06-21] MEDS: fentaNYL 100 MCG/2 ML INJ 50 MCG IV (13:13)
[2020-06-21] MEDS: MIDAZOLAM 5 MG/5 ML VIAL IV (13:13)
[2020-06-21] MEDS: BUPIVACAINE 0.5% (PF) VIAL 5 ML INJ (13:20)
[2020-06-21] MEDS: IOPAMIDOL 15 ML VIAL 3 ML INJ (13:20)
[2020-06-21] MEDS: BETAMETHASONE 30 MG/5 ML MDV 12 MG INJ (13:20)
== END 2020-06-21 13:50 | disposition home or self-care (01) ==
LOC: RAD 11:17
PROVIDERS: PCP Family Medicine; Referring Provider Physical Medicine & Rehabilitation; Visit Provider Physical Medicine & Rehabilitation
DX: M47.816 Spondylosis without myelopathy or radiculopathy, lumbar region (principal); M47.817 Spondylosis without myelopathy or radiculopathy, lumbosacral region; Z20.822 Contact with and (suspected) exposure to COVID-19
CPT/HCPCS: 64493; 64494; 87635; 99152; C9803; J0702; J2250; J3010

== ENCOUNTER → 2020-06-21 11:49 | Outpatient (CLI) | payer MEDICARE, OTHER, SELFPAY ==
[2020-06-21 12:46] LABS: COVID19 -Nasal RAPID Negative (Negative)
--- NOTE | 2020-06-21 13:27 | P.PCN_ITS ---
Date/Time/Diagnoses Date of procedure: 06/21/20 Time of procedure: 13:27 Pre-procedure diagnosis: Facet Arthropathy Post-procedure diagnosis: same Procedure Notes Procedure: Fluoroscopically guided contrast controlled left L4/5, L5/S1 facet joint injection. Indications: Kenia is referred by Dr. Gambino for treatment of left axial low back pain. Physician: Carlos Uriostegui Total Fluoroscopy time (seconds): 8 Total sedation minutes: 9 Complications: none Procedure in detail & Post-procedure care: FINDINGS Multilevel Facet Arthropathy with Clinically significant axial LBP DESCRIPTION OF PROCEDURE Fluoroscopically guided, contrast-controlled left L4/5, L5/S1 facet joint injections. Following review of allergy and review of potential side effects and complications, including, but not necessarily limited to, infection, allergic reaction, local tissue breakdown, stroke, temporary or permanent nerve injury, paralysis, and possible , the patient indicated that the patient understood and agreed to proceed. An informed consent document was signed by the patient, witnessed by a nurse, and placed in the patient's chart. Additionally, other treatment options including medications, modalities, and physical therapy were reviewed with the patient. After review of previous anaesthesic history and IV conscious sedation the patient was deemed safe to proceed with today?s procedure with IV conscious sedation as ASA class II designation. Safety time-out was performed to confirm patient ID, procedure to be performed and site of procedure. IV sedation was accomplished with a combination of 2mg of Versed and 50mcg of Fentanylwas administered by the RN after DO order, titrated to patient comfort during the course of the procedure while the patient remained responsive to all verbal commands. In the prone position, following sterile prep and drape of the lumbar region, the posterior aspect of the left L4/5, L5/S1 facet joints were identified fluoroscopically. The skin was anesthetized via a 25-gauge 1.5-inch needle with 1% lidocaine solution into the corresponding facet joints. At this point, a 22- gauge 3.5-inch spinal needle was atraumatically introduced and advanced under fluoroscopic guidance into the corresponding facet joints. Following negative aspiration, injections of approximately 0.2-cc of Isovue 200 confirmed interarticular placement without vascular uptake. Radiological data, including multiple fluoroscopic views of the lumbosacral spine, reveal a spinal needle at the left L4/5, L5/S1 facet joints. Subsequent views show flow of contrast material both superiorly and inferiorly within the joint space without vascular or intrathecal uptake. At this point, a total of 0.5 cc including a mixture of 0.25cc Marcaine and 0.25cc betamethasone was injected without complication into each of the corresponding facet joints. The procedure tolerated the procedure well without signs or symptoms of complications prior to transfer to the recovery area continued monitoring witho ut incident. The patient was then transferred to the recovery area where they were observed for an appropriate period of time after the injection. The patient reported a VAS score of 7 prior to the procedure and a post-procedure VAS of 0. POST OP INSTRUCTIONS The patient was provided a Pain Log to continue to record their response to the target-specific procedure prior to follow-up visit with their referring physician. Additionally, specific post-injection care instructions and a contact number to our office were provided if concerns arise regarding possible complications associated with the procedure are suspected.
== END ==
PROVIDERS: PCP Family Medicine; Visit Provider Physical Medicine & Rehabilitation
DX: Z20.822 Contact with and (suspected) exposure to COVID-19 (principal)
CPT/HCPCS: 87635

== ENCOUNTER → 2020-09-03 08:22 | Outpatient (CLI) | payer MEDICARE, OTHER, SELFPAY ==
[2020-09-03 15:13] LABS: COVID19 -Nasal RAPID Negative (Negative)
== END ==
PROVIDERS: PCP Family Medicine; Referring Provider Physical Medicine & Rehabilitation; Visit Provider Physical Medicine & Rehabilitation
DX: Z20.822 Contact with and (suspected) exposure to COVID-19 (principal)
CPT/HCPCS: 87635; C9803

== ENCOUNTER 2020-09-04 12:02 | Outpatient (CLI) | payer MEDICARE, OTHER, SELFPAY ==
[2020-09-04] VITALS (8 sets, daily range): BP systolic 122–163; BP diastolic 56–72; PULSE 55–61; RESP 12–18; TEMP 36.2; O2SAT 93–97
--- NOTE | 2020-09-04 12:05 | DI.RAD.S_ITS ---
PROCEDURE: PAIN L/SI FACET INJ/BLK 1STL INDICATIONS: SPONDYLOSIS COMPARISON: [facility], , PAIN L/SI FACET INJ/BLK 1STL, 06/21/2020, 13:15. FINDINGS: Fluoroscopic spot filming was performed to verify placement of spinal needles at the L4, L5, S1 level(s), as labeled on the films. Appropriate location(s) of the needle tip(s) was confirmed by injection of iodinated contrast. Dictated by: Khanh Nur M.D. on 09/04/2020 at 15:30 Approved by: Khanh Nur M.D. on 09/04/2020 at 15:31
[2020-09-04] MEDS: fentaNYL 100 MCG/2 ML INJ 50 MCG IV (13:34)
[2020-09-04] MEDS: MIDAZOLAM 5 MG/5 ML VIAL IV (13:34)
[2020-09-04] MEDS: IOPAMIDOL 15 ML VIAL 3 ML INJ (13:36)
[2020-09-04] MEDS: LIDOCAINE 1% 20 ML 10 ML INJ (13:39)
[2020-09-04] MEDS: BUPIVACAINE 0.5% (PF) VIAL 5 ML INJ (13:39)
--- NOTE | 2020-09-04 13:46 | PM.PROC.IR.1 ---
Date/Time/Diagnoses Date of procedure: 09/04/20 Time of procedure: 13:46 Pre-procedure diagnosis: 1. FACET ARTHROPATHY Post-procedure diagnosis: same Procedure Notes Procedure: 1. Left L4, L5 and S1 MB BLOCKS Indications: Kenia is referred by Dr. Gambino for treatment of Left Axial LBP. Physician: Carlos Uriostegui Total Fluoroscopy time (seconds): 8 Total sedation minutes: 8 Complications: none Procedure in detail & Post-procedure care: DESCRIPTION OF PROCEDURE Fluoroscopically guided, contrast-controlled left L4, L5 and S1 medial branch blocks with 0.5cc of 0.5% Marcaine. Following review of allergy and review of potential side effects and complications, including, but not necessarily limited to, infection, allergic reaction, local tissue breakdown, nerve injury, paralysis, stroke and possible , the patient indicated that the patient understood and agreed to proceed. An informed consent document was signed by the patient, witnessed by a nurse, and placed in the patient's chart. After review of previous anaesthesic history and IV conscious sedation the patient was deemed safe to proceed with today?s procedure with IV conscious sedation as ASA class II designation. Safety time-out was performed to confirm patient ID, procedure to be performed and site of procedure. IV sedation was accomplished with a combination of 3mg of Versed and 50mcg of Fentanyl was administered by the RN after DO order, titrated to patient comfort during the course of the procedure while the patient remained responsive to all verbal commands. In the prone position, following sterile prep and drape of the lumbar region, the left L4, L5 and S1 anatomical location of the medial branch of the dorsal ramus was identified fluoroscopically. Subsequently an anesthetic skin wheal using 1% lidocaine solution was initiated at each of the anatomical spots. Subsequently then a 22-gauge 3.5-inch spinal needle was atraumatically introduced and advanced under fluoroscopic guidance at each of the corresponding sites at the left L4, L5 and S1 MB. After negative aspiration, 0.2cc of Isovue 200 was injected, confirming placement without vascular or intrathecal uptake. Subsequently then 0.5cc of 0.5% Marcaine solution was injected at each of the corresponding sites at the left L4, L5 and S1 medial branch locations. The patient tolerated the procedure well without signs or symptoms of complications. The patient tolerated the procedure well without signs or symptoms of complications prior to transfer to the recovery area continued monitoring without incident. Post-procedure, the patient was monitored initiating provocative activities to measure the amount of relief from block of the facetogenic pain. The patient reported a VAS of 7 prior to the procedure and a post-procedure VAS of 1. It has been a pleasure to assist in the diagnostic and therapeutic care of your patient. POST OP INSTRUCTIONS The patient was provided with a Pain Log to complete over the next several hours and subsequent days prior to the patient's follow up with the ordering physician. If the patient has guest experience captain relief to the solution applied, then they may be a candidate for medial branch rhizotomy. The patient is aware, was provided, once again, with a Pain Log and will follow up with the referring physician for review and clinical correlation.
== END 2020-09-04 14:05 | disposition home or self-care (01) ==
LOC: RAD 12:04
PROVIDERS: PCP Family Medicine; Referring Provider Physical Medicine & Rehabilitation; Visit Provider Physical Medicine & Rehabilitation
DX: M47.816 Spondylosis without myelopathy or radiculopathy, lumbar region (principal); M47.817 Spondylosis without myelopathy or radiculopathy, lumbosacral region; M54.5 Low back pain
CPT/HCPCS: 64493; 64494; 64495; J2250; J3010

== ENCOUNTER → 2021-07-11 14:18 | Outpatient (CLI) | payer MEDICARE, OTHER, SELFPAY | PROVIDERS: PCP Family Medicine; Referring Provider Physical Medicine & Rehabilitation; Visit Provider Physical Medicine & Rehabilitation | DX: R20.2 Paresthesia of skin (principal) | CPT/HCPCS: 95885; 95886; 95912 ==

== ENCOUNTER → 2021-07-15 09:51 | Outpatient (CLI) | payer MEDICARE, OTHER, SELFPAY ==
[2021-07-15 12:24] LABS: COVID19 -Nasal RAPID Negative (Negative)
== END ==
PROVIDERS: PCP Family Medicine; Visit Provider Physical Medicine & Rehabilitation
DX: Z20.822 Contact with and (suspected) exposure to COVID-19 (principal)
CPT/HCPCS: 87635; C9803

== ENCOUNTER 2021-07-16 07:37 | Outpatient (CLI) | payer MEDICARE, OTHER, SELFPAY ==
[2021-07-16] VITALS (9 sets, daily range): BP systolic 143–197; BP diastolic 69–93; PULSE 57–65; RESP 16–22; TEMP 36.6; O2SAT 94–98
--- NOTE | 2021-07-16 07:40 | DI.RAD.S_ITS ---
PROCEDURE: PAIN L/S MED/LAT N RFA INDICATIONS: SPONDYLOSIS COMPARISON: [facility], XA, PAIN L/SI FACET INJ/BLK 1STL, 06/21/2020, 13:15. [facility], XA, PAIN L/SI FACET INJ/BLK 1STL, 09/04/2020, 13:37. FINDINGS: Fluoroscopic spot filming was performed to verify placement of spinal needles on the left at L4, L5, and S1, as labeled on the films. IMPRESSION: Intraprocedural examination within normal limits. Dictated by: Colt Watts M.D. on 07/16/2021 at 8:15 Approved by: Colt Watts M.D. on 07/16/2021 at 8:17
[2021-07-16] MEDS: MIDAZOLAM 2 MG/2 ML VIAL IV (08:35)
[2021-07-16] MEDS: fentaNYL 100 MCG/2 ML INJ (08:35)
[2021-07-16] MEDS: LIDOCAINE 1% 20 ML (08:39)
[2021-07-16] MEDS: BUPIVACAINE 0.5% (PF) VIAL 5 ML INJ (08:40)
--- NOTE | 2021-07-16 09:03 | P.PCN_ITS ---
Date/Time/Diagnoses Date of procedure: 07/16/21 Time of procedure: 09:03 Pre-procedure diagnosis: 1. RECALCITRANT FACET ARTHROPATHY Post-procedure diagnosis: same Procedure Notes Procedure: 1. LEFT L4 AND L5 MEDIAL BRANCH RADIOFREQUENCY NEUROTOMY AND LEFT S1 DORSAL RAMUS RADIOFREQUENCY NEUROTOMY, Indications: Kenia is referred by Dr. Gambino for treatment of facet arthropathy. Physician: Carlos Uriostegui Total Fluoroscopy time (seconds): 9 Total sedation minutes: 24 Complications: none Procedure in detail & Post-procedure care: DESCRIPTION OF PROCEDURE Left L4 and L5 medial branch radiofrequency neurotomy and left S1 dorsal ramus branch radiofrequency neurotomy under fluoroscopy with conscious sedation. The patient is well known to this clinic having undergone previous facet injections with good but temporary relief. The patient has experienced appropriate, concordant relief with previous facet and median branch blocks but the patient's pain has been recalcitrant to further conservative measures. Therefore, based upon the patient's relief and persistent symptoms, the patient is considered an appropriate candidate for facet rhizotomy. All of the patient's questions regarding the risks versus benefits of the procedure, including, but not limited to, bleeding, infection, temporary as well as lasting nerve injury, paralysis, stroke, and , as well treatment alternatives were answered to satisfaction. After obtaining informed consent, denial of pertinent drug allergies, as well as being made aware of the potential risks of bleeding, infection, spinal cord trauma, paralysis, temporary and permanent nerve damage, seizure, stroke, and possible , the patient was brought to the fluoroscopy suite and positioned prone on the fluoroscopy table. The lumbar region was prepped with Betadine and covered with a fenestrated drape in the usual sterile fashion. Appropriate monitors applied including pulse oximeter, pulse, and blood pressure for regular monitoring throughout the procedure. IV sedation was accomplished with a combination of 2mg of Versed and 50mcg of Fentanyl titrated to patient comfort during the course of the procedure while the patient remained responsive to all verbal commands. After local infiltration using 1% lidocaine, under fluoroscopic guidance, a 10- cm RF insulated needle with a 10-mm active tip was positioned parallel to the junction of the left sacral ala and the superior articulating process where the S1 dorsal ramus resides. Needle placement was confirmed with sensory stimulation at 50 Hz, with motor stimulation of .5v on the left which produced local stimulation without radicular component. The stimulation was then increased to 2v with, once again, only local multifidus stimulation without radicular component. This was then followed by two discreet lesions performed at 80 degrees Celsius for 90 seconds each. The needle was then removed and the identical procedure was performed along the length of the left L5 medial branch with motor stimulation at .7v on the left. The identical procedure was once again performed along the length of the left L4 medial branch with motor stimulation of .5v on the left. The patient tolerated the procedure well without signs or symptoms of complications prior to transfer to the recovery area continued monitoring without incident. The patient was then transferred to the recovery area where they were observed for an appropriate period of time after the injection. The patient was then transferred to the recovery area where they were observed for an appropriate period of time after the injection. The patient reported a VAS score of 9 prior to the procedure and a post- procedure VAS of 0. POST OP INSTRUCTIONS The patient was provided a Pain Log to continue to record the patient's response to the target-specific procedure prior to the patient's follow-up visit with the referring physician. Additionally, specific post-injection care instructions and a contact number to our office were provided if concerns arise regarding possible complications associated with the procedure are suspected.
== END 2021-07-16 09:18 | disposition home or self-care (01) ==
PROVIDERS: PCP Family Medicine; Referring Provider Physical Medicine & Rehabilitation; Visit Provider Physical Medicine & Rehabilitation
DX: M47.816 Spondylosis without myelopathy or radiculopathy, lumbar region (principal); M47.817 Spondylosis without myelopathy or radiculopathy, lumbosacral region
CPT/HCPCS: 64635; 64636; 99152; 99153; J2250; J3010

== ENCOUNTER → 2022-04-03 12:14 | Outpatient (CLI) | payer MEDICARE, OTHER, SELFPAY ==
--- NOTE | 2022-04-03 12:15 | DI.RAD.S_ITS ---
PROCEDURE: XR CERVICAL SPINE 4V OR 5V INDICATIONS: Bilateral hand paresthesias TECHNIQUE: 5 views of the cervical spine acquired. COMPARISON: None. FINDINGS: Bones: No fractures or dislocations to the C7 level. C2 is partially obscured on the lateral view by metallic artifacts from ear rings. There is moderate degenerative disc disease at C4-C5, C5-C6 and C6-C7, and mild degenerative disc disease at C2-C3 and C3-C4. [id number] bilateral facet arthropathy, most pronounced at C4-C5, C5-C6 and C6-C7. Oblique images demonstrate mild foraminal stenoses at C4-C5 and C5-C6 on the right, and C4-C5, C5-C6 and C6-C7 on the left. Soft tissues: No prevertebral soft tissue swelling. IMPRESSION: 1. Multilevel degenerative disc and facet disease in cervical spine. 2. Mild bilateral foraminal stenoses. Recommend MRI for further evaluation in this patient with radiculopathy symptoms. Dictated by: Americo Mcfarlane M.D. on 04/03/2022 at 16:45 Approved by: Americo Mcfarlane M.D. on 04/03/2022 at 16:48
== END ==
PROVIDERS: PCP Nurse Practitioner Family; Referring Provider Physical Medicine & Rehabilitation; Visit Provider Physical Medicine & Rehabilitation
DX: M50.31 Other cervical disc degeneration, high cervical region (principal); M48.02 Spinal stenosis, cervical region; M47.812 Spondylosis without myelopathy or radiculopathy, cervical region; R20.2 Paresthesia of skin; G56.22 Lesion of ulnar nerve, left upper limb; M47.816 Spondylosis without myelopathy or radiculopathy, lumbar region; M47.27 Other spondylosis with radiculopathy, lumbosacral region; M53.3 Sacrococcygeal disorders, not elsewhere classified; Z98.890 Other specified postprocedural states; Z87.81 Personal history of (healed) traumatic fracture
CPT/HCPCS: 72050; 99214

== ENCOUNTER → 2022-08-26 09:16 | Outpatient (CLI) | payer MEDICARE, OTHER, SELFPAY ==
--- NOTE | 2022-08-26 09:17 | DI.RAD.S_ITS ---
PROCEDURE: XR LUMBAR SPINE MIN 4V INDICATIONS: low back pain TECHNIQUE: 5 views of the lumbar spine were acquired, including bilateral oblique views. COMPARISON: [facility], , XR LUMBAR SPINE MIN 4V, 04/21/2020, 13:40. FINDINGS: Bones: 5 nonrib-bearing vertebrae are present. Grade 1 anterolisthesis of L5 on S1 measures 10 mm. Lower lumbar facet arthropathy. No vertebral body compression fractures. No suspicious bony lesions. Soft tissues: Overlying bowel gas pattern is normal. No suspicious soft tissue calcifications. Oblique images: No pars defects. IMPRESSION: 1. No evidence acute bony abnormality of the lumbar spine. 2. Grade 1 anterolisthesis of L5 on S1 measures 10 mm. 3. Multilevel facet arthropathy. Dictated by: Parminder Tomas M.D. on 08/26/2022 at 15:09 Approved by: Parminder Tomas M.D. on 08/26/2022 at 15:11
== END ==
PROVIDERS: PCP Nurse Practitioner Family; Referring Provider Physical Medicine & Rehabilitation; Visit Provider Physical Medicine & Rehabilitation
DX: M43.17 Spondylolisthesis, lumbosacral region (principal); M53.3 Sacrococcygeal disorders, not elsewhere classified; M47.816 Spondylosis without myelopathy or radiculopathy, lumbar region
CPT/HCPCS: 72110

== ENCOUNTER → 2022-09-04 08:18 | Outpatient (CLI) | payer MEDICARE, OTHER, SELFPAY ==
--- NOTE | 2022-09-04 08:19 | DI.MRI.S_ITS ---
PROCEDURE: MR LUMBAR SPINE WO CON INDICATIONS: Lumbosacral pain TECHNIQUE: Noncontrast sagittal T1 spin echo and T2 fast echo, sagittal STIR, and T2 fast spin echo through the lumbar spine. In cases with scoliosis, additional coronal T2 fast spin echo may be performed. COMPARISON: [facility], MR, MR LUMBAR SPINE WO CON, 04/21/2020, 13:21. FINDINGS: Image quality: Excellent. Alignment and Curvature: Unchanged 6 mm anterolisthesis of L5 on S1. Bone Marrow: Marrow is of normal overall signal. No acute vertebral body compression fractures. Spinal Cord: Conus medullaris terminates at the L2 level. Visualized cord demonstrates normal signal and size. Paraspinous Soft Tissues: No paravertebral masses. T12-L1: Stable findings. Mild facet hypertrophy. No canal stenosis or foraminal stenosis. L1-L2: Stable findings. Mild facet hypertrophy. No canal stenosis or foraminal stenosis. L2-L3: Stable findings. Mild facet hypertrophy. No significant canal stenosis or foraminal stenosis. L3-L4: Stable findings. Facet hypertrophy. No canal stenosis or foraminal stenosis. L4-L5: Stable findings. Somewhat prominent facet hypertrophy. Mild bilateral foraminal narrowing. No canal stenosis. L5-S1: Stable findings. Facet hypertrophy. Mild anterolisthesis of L5 on S1. No canal stenosis. Right foramen is patent. Moderate left foraminal narrowing. IMPRESSION: 1. Findings are stable. 2. Multilevel facet arthropathy, prominent at L4-L5. 3. No significant canal stenosis. 4. Moderate left foraminal narrowing at L5-S1. Dictated by: Parminder Tomas M.D. on 09/04/2022 at 12:05 Approved by: Parminder Tomas M.D. on 09/04/2022 at 12:12
== END ==
PROVIDERS: PCP Nurse Practitioner Family; Referring Provider Physical Medicine & Rehabilitation; Visit Provider Physical Medicine & Rehabilitation
DX: M53.3 Sacrococcygeal disorders, not elsewhere classified (principal); M19.90 Unspecified osteoarthritis, unspecified site
CPT/HCPCS: 72148

== ENCOUNTER 2022-09-25 09:44 | Outpatient (CLI) | payer MEDICARE, OTHER, SELFPAY ==
[2022-09-25] VITALS (9 sets, daily range): BP systolic 123–147; BP diastolic 56–63; PULSE 49–62; RESP 11–22; TEMP 36.1; O2SAT 95–98
--- NOTE | 2022-09-25 09:45 | DI.RAD.S_ITS ---
PROCEDURE: PAIN L/S TRANSFORAMINAL INJECT INDICATIONS: SPONDYLOSIS COMPARISON: [facility], MR, MR LUMBAR SPINE WO CON, 09/04/2022, 9:34. [facility], CR, XR LUMBAR SPINE MIN 4V, 08/26/2022, 9:13. FINDINGS: Fluoroscopic spot filming was performed to verify placement of a spinal needle at the L5-S1 level, as labeled on the films. Appropriate location of the needle tip was confirmed by injection of iodinated contrast. IMPRESSION: No significant intraprocedural abnormality. Dictated by: Colt Watts M.D. on 09/25/2022 at 11:38 Approved by: Colt Watts M.D. on 09/25/2022 at 11:38
[2022-09-25] MEDS: MIDAZOLAM 2 MG/2 ML VIAL 1 MG IV (10:45)
[2022-09-25] MEDS: BETAMETHASONE 30 MG/5 ML MDV 6 MG INJ (10:47)
[2022-09-25] MEDS: DEXAMETHASONE 10 MG/ML VIAL 20 MG INJ (10:47)
[2022-09-25] MEDS: IOPAMIDOL 15 ML VIAL 3 ML INJ (10:47)
[2022-09-25] MEDS: BUPIVACAINE 0.25% (PF) VIAL 2 ML INJ (10:47)
--- NOTE | 2022-09-25 11:04 | PM.PROC.IR.1 ---
Date/Time/Diagnoses Date of procedure: 09/25/22 Time of procedure: 11:04 Pre-procedure diagnosis: 1. FORAMINAL STENOSIS WITH LE SYMPTOMS Post-procedure diagnosis: same Procedure Notes Procedure: 1. FLUOROSCOPICALLY GUIDED CONTRAST CONTROLLED TRANSFORAMINAL EPIDURAL STEROID INJECTION - Left L5/S1 Indications: Kenia is referred by ELISABETH Mejia for treatment of Foraminal Stenosis with Left LE Symptoms Physician: Carlos Uriostegui Total Fluoroscopy time (seconds): 12 Total sedation minutes: 17 Complications: none Procedure in detail & Post-procedure care: FINDINGS Foraminal Nerve Root Compression secondary to disc disease and facet hypertrophy DESCRIPTION OF PROCEDURE Following review of allergy and review of potential side effects and complications, including, but not necessarily limited to, infection, allergic reaction, local tissue breakdown, stroke, temporary or permanent nerve injury, paralysis, and possible , the patient indicated that the patient understood and agreed to proceed. An informed consent document was signed by the patient, witnessed by a nurse, and placed in the patient's chart. Additionally, other treatment options including medications, modalities, and physical therapy were reviewed with the patient. After review of previous anaesthesic history and IV conscious sedation the patient was deemed safe to proceed with today?s procedure with IV conscious sedation as ASA class II designation. Safety time-out was performed to confirm patient ID, procedure to be performed and site of procedure. IV sedation was accomplished with a combination of 1mg of Versed was administered by the RN after DO order, titrated to patient comfort during the course of the procedure while the patient remained responsive to all verbal commands In the prone position following sterile prep and drape of the lumbar region, the Left L5/S1 posterior neuroforamen was identified fluoroscopically. The skin was anesthetized via a 25-gauge 1.5-inch needle with 1% lidocaine solution. At this point, a 22-gauge 5-inch spinal needle was atraumatically introduced and advanced under fluoroscopic guidance through the posterior Left L5/S1 neuroforamen to approximately the anterior aspect of the canal. Depth was confirmed on lateral view. Following negative aspiration, injection of approximately 1.5 cc of Isovue 200 under live fluoroscopy in the AP view confirmed excellent flow along the nerve root, into the epidural space without vascular or intrathecal uptake observed Radiological data, including multiple fluoroscopic views of the lumbosacral spine, reveal a spinal needle at the Left L5/S1 posterior neuroforamen. Subsequent views show flow of contrast material flowing superiorly and inferiorly along the nerve root confirming epidural flow. Subsequently, a test dose of 1.5 cc of 1% lidocaine solution was administered and patient was observed for two minutes for signs or symptoms of complications, including abdominal pain, shortness of breath, bilateral upper or lower extremity weakness, nausea and vomiting, prior to steroid injection. At this point, a total of 3cc or 20mg of dexamethasone and 6mg of betamethasone was injected without incident. The procedure tolerated the procedure well without signs or symptoms of complications prior to transfer to the recovery area continued monitoring without incident. The patient was then transferred to the recovery area where they were observed for an appropriate time after the injection. The patient reported a VAS score of 7 prior to the procedure and a post-procedure VAS of 0. POST OP INSTRUCTIONS The patient was provided a Pain Log to continue to record their response to the target-specific procedure prior to follow-up visit with their referring physician. Additionally, specific post-injection care instructions and a contact number to our office were provided if concerns arise regarding possible complications associated with the procedure are suspected.
== END 2022-09-25 11:25 | disposition home or self-care (01) ==
LOC: RAD 09:45
PROVIDERS: PCP Nurse Practitioner Family; Referring Provider Physical Medicine & Rehabilitation; Visit Provider Physical Medicine & Rehabilitation
DX: M48.07 Spinal stenosis, lumbosacral region (principal); M51.17 Intervertebral disc disorders with radiculopathy, lumbosacral region; M47.27 Other spondylosis with radiculopathy, lumbosacral region
CPT/HCPCS: 64483; 99152; J0702; J1100; J2250; J3490

== ENCOUNTER → 2023-05-01 11:14 | Outpatient (CLI) | payer MEDICARE, OTHER, SELFPAY ==
--- NOTE | 2023-05-01 11:16 | DI.MRI.S_ITS ---
PROCEDURE: MR CERVICAL SPINE WO CON INDICATIONS: Cervical radiculopathy TECHNIQUE: Noncontrast sagittal T1 spin echo and T2 fast spin echo, sagittal STIR, foraminal oblique sagittal T2 fast spin echo, and axial gradient echo or T2 fast spin echo through the cervical spine. COMPARISON: None. FINDINGS: Image quality: Mild motion degradation. Alignment and Curvature: Minimal anterolisthesis of C7 on T1. Mild straightening of normal cervical lordosis. Bone Marrow: Marrow demonstrates normal overall signal. Spinal Cord: Visualized spinal cord has normal size and signal. No cerebellar tonsillar herniation. Paraspinous Soft Tissues: No paravertebral masses. Prevertebral soft tissues are normal in thickness. C2-C3: Disc desiccation. No central canal stenosis. Facet and uncovertebral arthropathy. Mild bilateral neural foraminal stenosis. C3-C4: Disc desiccation height loss. Mild posterior disc osteophyte complex. Mild central canal stenosis. Facet and uncovertebral arthropathy. Moderate bilateral neural foraminal stenosis. C4-C5: Disc desiccation and height loss. Posterior disc osteophyte complex. Mild central canal stenosis. Facet and uncovertebral arthropathy. Severe bilateral neural foraminal stenosis. C5-C6: Disc desiccation height loss. Posterior disc osteophyte complex. Mild central canal stenosis. Facet and uncovertebral arthropathy. Moderate left and mild right neural foraminal stenosis. C6-C7: Disc desiccation height loss. Posterior disc osteophyte complex. Mild central canal stenosis. Facet and uncovertebral arthropathy. Moderate bilateral neural foraminal stenosis. C7-T1: Disc desiccation. No central canal stenosis. Facet and uncovertebral arthropathy. Moderate left and no right neural foraminal stenosis. IMPRESSION: 1. Multilevel degenerative changes of the cervical spine as described above. 2. There is multilevel mild central canal stenosis. 3. Severe bilateral neural foraminal stenosis at C4-C5. Multilevel moderate neural foraminal stenosis as above. Dictated by: Александр Knott M.D. on 05/01/2023 at 14:06 Approved by: Александр Knott M.D. on 05/01/2023 at 14:10
== END ==
LOC: MRI 11:15
PROVIDERS: PCP Nurse Practitioner Family; Referring Provider Physical Medicine & Rehabilitation; Visit Provider Physical Medicine & Rehabilitation
DX: M47.22 Other spondylosis with radiculopathy, cervical region (principal); M48.02 Spinal stenosis, cervical region
CPT/HCPCS: 72141

== ENCOUNTER 2023-12-03 07:42 | Outpatient (CLI) | payer MEDICARE, OTHER, SELFPAY ==
[2023-12-03] VITALS (9 sets, daily range): BP systolic 113–128; BP diastolic 51–68; PULSE 43–58; RESP 10–19; TEMP 35.9; O2SAT 92–99
--- NOTE | 2023-12-03 08:45 | DI.RAD.S_ITS ---
PROCEDURE: PAIN C/T INTERLAMINAR INJECT INDICATIONS: CERVICAL STENOSIS COMPARISON: None. FINDINGS: Fluoroscopic spot filming was performed to verify placement of spinal needles at the C6-C7 level(s), as labeled on the films. Appropriate location(s) of the needle tip(s) was confirmed by injection of iodinated contrast. IMPRESSION: Intraoperative guidance provided. Dictated by: Theo Cam M.D. on 12/03/2023 at 22:51 Approved by: Theo Cam M.D. on 12/03/2023 at 22:52
[2023-12-03] MEDS: MIDAZOLAM 2 MG/2 ML VIAL 1 MG IV (09:10)
[2023-12-03] MEDS: iopamidoL 15 ML VIAL 3 ML INJ (09:14)
[2023-12-03] MEDS: DEXAMETHASONE 10 MG/ML VIAL 20 MG INJ (09:15)
[2023-12-03] MEDS: BUPIVACAINE 0.25% (PF) VIAL 2 ML INJ (09:15)
--- NOTE | 2023-12-03 09:34 | P.PCN_ITS ---
Date/Time/Diagnoses Date of procedure: 12/03/23 Time of procedure: 09:34 Pre-procedure diagnosis: 1. CERVICAL STENOSIS, 2. CERVICAL HNP WITH UPPER EXTREMITY RADICULAR FEATURES Post-procedure diagnosis: same Procedure Notes Procedure: 1. FLUORSCOPICALLY GUIDED CONTRAST CONTROLLED INTERLAMINAR EPIDURAL STEROID INJECTION - C6/7 TL NICOLASA Indications: Kenia is referred by ELISABETH Mejia for treatment of Cervical HNP with Upper Extremity Paresthesias. Physician: Carlos Uriostegui Total Fluoroscopy time (seconds): 31 Total sedation minutes: 17 Complications: none Procedure in detail & Post-procedure care: FINDINGS Cervical Stenosis due to disc deterioration and nerve root irritation and nerve root irritation DESCRIPTION OF PROCEDURE Fluoroscopically guided, contrast-controlled C6/7 translaminar epidural steroid injection with conscious sedation. Following review of allergy and review of potential side effects and complications, including, but not necessarily limited to, infection, allergic reaction, local tissue breakdown, temporary as well as permanent nerve injury, stroke, paralysis, and possible , the patient indicated that patient understood and agreed to proceed. An informed consent document was signed by the patient, witnessed by a nurse, and placed in the patient's chart. Additionally, other treatment options including modalities, medications, and physical therapy were reviewed with the patient. After review of previous anaesthesic history and IV conscious sedation the patient was deemed safe to proceed with today?s procedure with IV conscious s edation as ASA class II designation. Safety time-out was performed to confirm patient ID, procedure to be performed and site of procedure. IV sedation was accomplished with a combination of 1mg of Versed administered by the RN after DO order, titrated to patient comfort during the course of the procedure while the patient remained responsive to all verbal commands. In the prone position, following sterile prep and drape of the cervical region, the C6/7 translaminar space was identified fluoroscopically. The skin was anesthetized via a 25-gauge 1.5-inch needle with 1% lidocaine solution. At this point, a 25-gauge, 2.5-inch short bevel spinal needle was atraumatically introduced and advanced under fluoroscopic guidance into epidural space at the C6/7 translaminar space. Depth was confirmed on lateral view. Radiological data, including multiple fluoroscopic views of the cervical spine, reveal a spinal needle at the C6/7 translaminar space. Lateral views then show placement of the needle in the epidural space. Subsequent views show contrast material flowing superiorly and inferiorly in the epidural space. DSA fluoroscopy with live contrast injection, once again, confirmed no vascular or intrathecal uptake. At this point, using loss of resistance technique with saline and air, the epidural space was entered. Following negative aspiration, injection of approximately 1.5 cc of Isovue-200 with live fluoroscopy in the AP view confirmed epidural flow in the epidural space without vascular or intrathecal uptake observed. Subsequently, a test dose of 1 cc of 1% lidocaine solution was injected and patient was observed for two minutes without signs or symptoms of complications, including abdominal pain, shortness of breath, bilateral upper or lower extremity weakness, nausea and vomiting, prior to steroid injection. At this point, 2cc or 20mg of dexamethasone was then injected without incident. The patient tolerated the procedure well without signs or symptoms of complications prior to being transferred to the recovery area for further monitoring, The patient was then transferred to the recovery area where they were observed for an appropriate period of time after the injection. The patient reported a VAS score of 6 prior to the procedure and a post-procedure VAS of 0. POST OP INSTRUCTIONS The patient was provided a Pain Log to continue to record their response to the target-specific procedure prior to follow-up visit with the referring provider. Additionally, specific post-injection care instructions and a contact number to our office were provided if concerns arise regarding possible complications associated with the procedure are suspected.
== END 2023-12-03 09:50 | disposition home or self-care (01) ==
LOC: RAD 07:43
PROVIDERS: PCP Nurse Practitioner Family; Referring Provider Physical Medicine & Rehabilitation; Visit Provider Physical Medicine & Rehabilitation
DX: M48.02 Spinal stenosis, cervical region (principal); M50.123 Cervical disc disorder at C6-C7 level with radiculopathy
CPT/HCPCS: 62321; 99152; J1100; J2250; J3490

== ENCOUNTER 2024-03-29 13:51 | Outpatient (CLI) | payer MEDICARE, OTHER, SELFPAY ==
[2024-03-29] VITALS (9 sets, daily range): BP systolic 113–139; BP diastolic 55–70; PULSE 50–63; RESP 12–20; TEMP 36.3; O2SAT 91–99
--- NOTE | 2024-03-29 14:31 | DI.RAD.S_ITS ---
PROCEDURE: PAIN L/S TRANSFORAMINAL INJECT INDICATIONS: Left L5-S1 transforaminal NICOLASA COMPARISON: [facility], , PAIN L/S TRANSFORAMINAL INJECT, 09/25/2022, 10:46. FINDINGS/IMPRESSION: Fluoroscopic spot filming was performed to verify placement of spinal needles at the left L5-S1 level(s), as labeled on the films. Appropriate location(s) of the needle tip(s) was confirmed by injection of iodinated contrast. Dictated by: Александр Knott M.D. on 03/30/2024 at 10:57 Approved by: Александр Knott M.D. on 03/30/2024 at 11:10
[2024-03-29] MEDS: MIDAZOLAM 2 MG/2 ML VIAL IV (15:43)
[2024-03-29] MEDS: BETAMETHASONE 30 MG/5 ML MDV 6 MG INJ (15:47)
[2024-03-29] MEDS: iopamidoL 15 ML VIAL 3 ML INJ (15:48)
[2024-03-29] MEDS: DEXAMETHASONE 10 MG/ML VIAL INJ (15:48)
[2024-03-29] MEDS: BUPIVACAINE 0.25% (PF) VIAL 2 ML INJ (15:48)
--- NOTE | 2024-03-29 16:00 | P.PCN_ITS ---
Date/Time/Diagnoses Date of procedure: 03/29/24 Time of procedure: 16:00 Pre-procedure diagnosis: 1. FORAMINAL STENOSIS WITH LE SYMPTOMS Post-procedure diagnosis: same Procedure Notes Procedure: 1. FLUOROSCOPICALLY GUIDED CONTRAST CONTROLLED TRANSFORAMINAL EPIDURAL STEROID INJECTION - Left L5/S1 Indications: Kenia is referred by ELISABETH Mejia for treatment of Foraminal Stenosis with Left LE Symptoms Physician: Carlos Uriostegui Total Fluoroscopy time (seconds): 13 Total sedation minutes: 15 Complications: none Procedure in detail & Post-procedure care: FINDINGS Foraminal Nerve Root Compression secondary to disc disease and facet hypertrophy DESCRIPTION OF PROCEDURE Following review of allergy and review of potential side effects and complications, including, but not necessarily limited to, infection, allergic reaction, local tissue breakdown, stroke, temporary or permanent nerve injury, paralysis, and possible , the patient indicated that the patient understood and agreed to proceed. An informed consent document was signed by the patient, witnessed by a nurse, and placed in the patient's chart. Additionally, other treatment options including medications, modalities, and physical therapy were reviewed with the patient. After review of previous anaesthesic history and IV conscious sedation the patient was deemed safe to proceed with today?s procedure with IV conscious sedation as ASA class II designation. Safety time-out was performed to confirm patient ID, procedure to be performed and site of procedure. IV sedation was accomplished with a combination of 2mg of Versed was administered by the RN after DO order, titrated to patient comfort during the course of the procedure while the patient remained responsive to all verbal commands In the prone position following sterile prep and drape of the lumbar region, the Left L5/S1 posterior neuroforamen was identified fluoroscopically. The skin was anesthetized via a 25-gauge 1.5-inch needle with 1% lidocaine solution. At this point, a 25-gauge 3.5-inch spinal needle was atraumatically introduced and advanced under fluoroscopic guidance through the posterior Left L5/S1 neuroforamen to approximately the anterior aspect of the canal. Depth was confirmed on lateral view. Following negative aspiration, injection of approximately 1.5 cc of Isovue 200 under live fluoroscopy in the AP view co nfirmed excellent flow along the nerve root, into the epidural space without vascular or intrathecal uptake observed Radiological data, including multiple fluoroscopic views of the lumbosacral spin e, reveal a spinal needle at the Left L5/S1 posterior neuroforamen. Subsequent views show flow of contrast material flowing superiorly and inferiorly along the nerve root confirming epidural flow. Subsequently, a test dose of 1.5 cc of 1% lidocaine solution was administered and patient was observed for two minutes for signs or symptoms of complications, including abdominal pain, shortness of breath, bilateral upper or lower extremity weakness, nausea and vomiting, prior to steroid injection. At this point, a total of 2cc or 10mg of dexamethasone and 6mg of betamethasone was injected without incident. The procedure tolerated the procedure well without signs or symptoms of complications prior to transfer to the recovery area continued monitoring without incident. The patient was then transferred to the recovery area where they were observed for an appropriate time after the injection. The patient reported a VAS score of 7 prior to the procedure and a post-procedure VAS of 0. POST OP INSTRUCTIONS The patient was provided a Pain Log to continue to record their response to the target-specific procedure prior to follow-up visit with their referring physician. Additionally, specific post-injection care instructions and a contact number to our office were provided if concerns arise regarding possible complications associated with the procedure are suspected.
== END 2024-03-29 16:20 | disposition home or self-care (01) ==
PROVIDERS: PCP Nurse Practitioner Family; Referring Provider Physical Medicine & Rehabilitation; Visit Provider Physical Medicine & Rehabilitation
DX: M48.07 Spinal stenosis, lumbosacral region (principal); M51.17 Intervertebral disc disorders with radiculopathy, lumbosacral region; M47.27 Other spondylosis with radiculopathy, lumbosacral region
CPT/HCPCS: 64483; 99152; J0702; J1100; J2250; J3490

== ENCOUNTER → 2024-04-07 08:08 | Outpatient (CLI) | payer MEDICARE, OTHER, SELFPAY | LOC: RESP 08:10 | PROVIDERS: PCP Nurse Practitioner Family; Referring Provider Internal Medicine Pulmonary Disease; Visit Provider Internal Medicine Pulmonary Disease | DX: J98.4 Other disorders of lung (principal); J84.9 Interstitial pulmonary disease, unspecified; Z87.891 Personal history of nicotine dependence; Z86.16 Personal history of COVID-19; R94.2 Abnormal results of pulmonary function studies | CPT/HCPCS: 94060; 94726; 94729 ==